=== PATIENT | female | born 1960 | race Caucasian/White ===

== ENCOUNTER 2016-10-10 15:54 | Inpatient (IN) | payer OTHER ==
[~2016-10-10] VITALS: Ht 162.6 cm; Wt 49.1 kg
[~2016-10-10 15:54] MED LIST: ALPR1TAB2 PO; HYDR-429 PO; LEVE500T6 PO; LEVE750T4 PO; MIRT45TA3 PO; NORT25CA5 PO
[2016-10-10] MEDS ORDERED: MAG HYDROX/AL HYDROX/SIMETH 30 ML UDC ONE (16:16)
[2016-10-10] MEDS ORDERED: LIDOCAINE VISCOUS 2% UD 15 ML UDC ONE (16:17)
[2016-10-10] MEDS ORDERED: ACETAMINOPHEN 325 MG TABLET ONE (16:17)
[2016-10-10] MEDS ORDERED: ACETAMINOPHEN 325 MG TABLET PO ONE (16:30)
[2016-10-10] MEDS ORDERED: MAG HYDROX/AL HYDROX/SIMETH 30 ML UDC PO ONE (16:30)
[2016-10-10] MEDS ORDERED: LIDOCAINE VISCOUS 2% UD 15 ML UDC MM ONE (16:30)
[2016-10-10] MEDS ORDERED: ONDANSETRON HCL/PF 4 MG/2 ML VIAL ONE (16:44)
[2016-10-10 16:45] LABS: BASOPHILS # (AUTO) 0.1 /CMM (0.0-0.2); BASOPHILS % (AUTO) 1.3 % (0.0-2.0); DIFF TOTAL % 100 %; EOSINOPHILS % (AUTO) 0.4 % (0.0-6.0); HEMATOCRIT 45 % (33-45); HEMOGLOBIN 15.3 g/dL (11.5-14.8); LYMPHOCYTES # (AUTO) 2.4 /CMM (0.8-4.8); LYMPHOCYTES % (AUTO) 35.5 % (20.0-44.0); MEAN CORPUSCULAR HEMOGLOBIN 31 PG (26.0-33.0); MEAN CORPUSCULAR HGB CONC 34 g/dl (31.0-36.0); MEAN CORPUSCULAR VOLUME 90 fL (82-100); MONOCYTES # (AUTO) 0.3 /CMM (0.1-1.30); MONOCYTES % (AUTO) 4.3 % (2.0-12.0); NEUTROPHILS # (AUTO) 3.9 /CMM (1.8-8.9); NEUTROPHILS % (AUTO) 58.5 % (43.0-81.0); PLATELET COUNT (AUTO) 278 /CMM (150-450); WHITE BLOOD COUNT (AUTO) 6.7 K/uL (4.3-11.0)
[2016-10-10 16:52] LABS: ANION GAP 15 (5-14); CALCIUM, SERUM 9.7 mg/dL (8.5-10.1); CARBON DIOXIDE 27 mmol/L (21-32); CHLORIDE 99 mmol/L (98-107); CREATININE 0.9 mg/dL (0.6-1.3); GFR 65 mL/min (>60); GLUCOSE 104 mg/dL (74-106); POTASSIUM 4.1 mmol/L (3.5-5.1); SODIUM SERUM 136 mmol/L (136-145); UREA NITROGEN, BLOOD 9 mg/dL (7-18)
[2016-10-10] MEDS ORDERED: ONDANSETRON HCL/PF - ER 4 MG/2 ML VIAL IV ONE (17:00)
[2016-10-10 17:04] LABS: ALANINE AMINOTRANSFERASE 21 U/L (12-78); ALBUMIN 4.4 g/dL (3.4-5.0); ASPARTATE AMINOTRANSFERASE 15 U/L (15-37); BILIRUBIN,DIRECT 0.1 mg/dL (0.0-0.2); BILIRUBIN,TOTAL 0.5 mg/dL (0.2-1.0); INDIRECT BILIRUBIN 0.4 mg/dL (0.0-1.1); TOTAL PROTEIN, SERUM 8.8 g/dL (6.4-8.2)
[2016-10-10 17:05] LABS: ACETAMINOPHEN 0 ug/ml (10-30)
[2016-10-10 17:08] LABS: TROPONIN I 0.075 ng/mL (0.00-0.056)
[2016-10-10 17:41] LABS: THYROID STIMULATING HORMONE 0.512 uIU/mL (0.358-3.74)
[2016-10-10] MEDS ORDERED: MORPHINE SULFATE INJ 2 MG/ML DISP.SYRIN ONE (18:54)
[2016-10-10] MEDS ORDERED: MORPHINE SULFATE INJ 2 MG/ML DISP.SYRIN IV ONE (19:00)
[2016-10-10 19:11] LABS: KETONES,URINE NEGATIVE (NEGATIVE); LEUKOCYTE ESTERASE ,URINE NEGATIVE (NEGATIVE)
[2016-10-10 19:23] LABS: PHENCYCLIDINE SCREEN,URINE NEGATIVE (NEGATIVE)
[2016-10-10 19:30] LABS: ADD UA MICROSCOPIC YES
[2016-10-10 19:31] LABS: CANNABINOID, URINE POSITIVE (NEGATIVE)
[2016-10-10 19:32] LABS: ADD URINE CULTURE NO
[2016-10-10] MEDS ORDERED: LEVETIRACETAM (250 MG) 250 MG TABLET PO ONE ×2 (20:30→22:29)
[2016-10-10] MEDS ORDERED: LORAZEPAM 1 MG TABLET ONE (21:08)
[2016-10-10] MEDS ORDERED: ACETAMINOPHEN 325 MG TABLET PO PRN (21:30)
[2016-10-10] MEDS ORDERED: HYDROCODONE/APAP 5/325MG 1 EACH TABLET PO PRN (21:30)
[2016-10-10] MEDS ORDERED: Z GUARD REMEDY 2 OZ OINT TP PRN (21:30)
[2016-10-10] MEDS ORDERED: MAG HYDROX/AL HYDROX/SIMETH 30 ML UDC PO PRN (21:30)
[2016-10-10] MEDS ORDERED: ALPRAZOLAM 1 MG TABLET PO ONE (21:30)
[2016-10-10] MEDS ORDERED: MAGNESIUM HYDROXIDE 30 ML UDC PO PRN (21:30)
[2016-10-10] MEDS ORDERED: ENOXAPARIN SODIUM 40 MG/0.4 ML DISP.SYRIN SQ SCH (21:30)
[2016-10-10] MEDS ORDERED: MIRTAZAPINE 45 MG TABLET ONE (22:30)
[2016-10-10 22:40] VITALS: BP 142/75
[2016-10-10] MEDS: MIRTAZAPINE SOLUTAB 45 MG/UDTABLET TAB.RAPDIS PO SCH (23:34)
[2016-10-11] VITALS (7 sets, daily range): BP systolic 107–131; BP diastolic 64–83
[2016-10-11] MEDS ORDERED: ZOLPIDEM TARTRATE 5 MG TABLET ONE (00:33)
[2016-10-11] MEDS: ZOLPIDEM TARTRATE 5 MG TABLET PO PRN ×2 (00:39→22:22)
[2016-10-11] MEDS: HYDROCODONE/APAP 10/325MG 1 EA TABLET PO SCH ×2 (06:00)
[2016-10-11 06:24] LABS: BASOPHILS % (AUTO) 0.4 % (0.0-2.0); DIFF TOTAL % 100 %; EOSINOPHILS # (AUTO) 0.1 /CMM (0.0-0.7); EOSINOPHILS % (AUTO) 1.3 % (0.0-6.0); HEMATOCRIT 41 % (33-45); HEMOGLOBIN 13.6 g/dL (11.5-14.8); LYMPHOCYTES % (AUTO) 32.3 % (20.0-44.0); MEAN CORPUSCULAR HEMOGLOBIN 30 PG (26.0-33.0); MEAN CORPUSCULAR HGB CONC 33 g/dl (31.0-36.0); MEAN CORPUSCULAR VOLUME 92 fL (82-100); MONOCYTES # (AUTO) 0.4 /CMM (0.1-1.30); MONOCYTES % (AUTO) 6.6 % (2.0-12.0); NEUTROPHILS # (AUTO) 3.7 /CMM (1.8-8.9); NEUTROPHILS % (AUTO) 59.4 % (43.0-81.0); PLATELET COUNT (AUTO) 244 /CMM (150-450); RED BLOOD CELL COUNT(AUTO) 4.49 MIL/uL (4.0-5.2); WHITE BLOOD COUNT (AUTO) 6.3 K/uL (4.3-11.0)
[2016-10-11 07:16] LABS: CALCIUM, SERUM 8.6 mg/dL (8.5-10.1); CREATININE 0.8 mg/dL (0.6-1.3); PHOSPHORUS 3.9 mg/dL (2.5-4.9)
[2016-10-11] MEDS: NORTRIPTYLINE HCL 25 MG CAPSULE PO SCH ×3 (10:14→16:50)
[2016-10-11] MEDS: PANTOPRAZOLE 40 MG TABLET.DR PO SCH (10:14)
[2016-10-11] MEDS: ALPRAZOLAM 1 MG TABLET PO SCH ×2 (10:52→21:12)
[2016-10-11] MEDS ORDERED: ASPIRIN 325 MG TABLET PO SCH (11:00)
[2016-10-11] MEDS ORDERED: ATORVASTATIN 40 MG TABLET PO SCH (11:00)
[2016-10-11] MEDS: LEVETIRACETAM (250 MG) 250 MG TABLET PO SCH ×2 (11:48→16:50)
[2016-10-11] MEDS: METOPROLOL TARTRATE 25 MG TABLET PO SCH ×2 (11:48→21:13)
[2016-10-11] MEDS: ENOXAPARIN SODIUM 60 MG/0.6 ML DISP.SYRIN SQ SCH ×2 (11:51→22:19)
[2016-10-11] MEDS: MORPHINE SULFATE INJ 2 MG/ML DISP.SYRIN IV PRN ×3 (11:52→22:22)
[2016-10-11] MEDS: ONDANSETRON HCL/PF 4 MG/2 ML VIAL IVP PRN (16:55)
[2016-10-11] MEDS ORDERED: ENOXAPARIN SODIUM 40 MG/0.4 ML DISP.SYRIN SQ SCH (21:00)
[2016-10-11] MEDS: ATORVASTATIN 40 MG TABLET PO SCH (21:12)
[2016-10-11] MEDS: MIRTAZAPINE SOLUTAB 45 MG/UDTABLET TAB.RAPDIS PO SCH (21:14)
[2016-10-12] VITALS (9 sets, daily range): BP systolic 101–128; BP diastolic 52–78
[2016-10-12] MEDS: MORPHINE SULFATE INJ 2 MG/ML DISP.SYRIN IV PRN ×4 (06:33→21:04)
[2016-10-12] MEDS: METOPROLOL TARTRATE 25 MG TABLET PO SCH ×2 (09:00→22:18)
[2016-10-12] MEDS: ALPRAZOLAM 1 MG TABLET PO SCH ×2 (10:10→22:18)
[2016-10-12] MEDS: ASPIRIN 81 MG TAB.CHEW PO SCH (10:10)
[2016-10-12] MEDS: NORTRIPTYLINE HCL 25 MG CAPSULE PO SCH ×3 (10:10→16:28)
[2016-10-12] MEDS: PANTOPRAZOLE 40 MG TABLET.DR PO SCH (10:11)
[2016-10-12] MEDS: LEVETIRACETAM (250 MG) 250 MG TABLET PO SCH ×2 (10:11→16:28)
[2016-10-12] MEDS: ENOXAPARIN SODIUM 60 MG/0.6 ML DISP.SYRIN SQ SCH ×2 (12:21→22:55)
[2016-10-12] MEDS: ATORVASTATIN 40 MG TABLET PO SCH (22:18)
[2016-10-12] MEDS: MIRTAZAPINE SOLUTAB 45 MG/UDTABLET TAB.RAPDIS PO SCH (22:18)
[2016-10-12] MEDS: ZOLPIDEM TARTRATE 5 MG TABLET PO PRN (22:53)
[2016-10-13] VITALS: BP 119/70
[2016-10-13] MEDS: MORPHINE SULFATE INJ 2 MG/ML DISP.SYRIN IV PRN ×2 (01:56→08:31)
[2016-10-13 07:52] LABS: BASOPHILS % (AUTO) 0.8 % (0.0-2.0); DIFF TOTAL % 100 %; EOSINOPHILS # (AUTO) 0.1 /CMM (0.0-0.7); EOSINOPHILS % (AUTO) 1.6 % (0.0-6.0); HEMATOCRIT 40 % (33-45); HEMOGLOBIN 13.3 g/dL (11.5-14.8); LYMPHOCYTES # (AUTO) 2.6 /CMM (0.8-4.8); LYMPHOCYTES % (AUTO) 44.8 % (20.0-44.0); MEAN CORPUSCULAR HEMOGLOBIN 30 PG (26.0-33.0); MEAN CORPUSCULAR HGB CONC 33 g/dl (31.0-36.0); MEAN CORPUSCULAR VOLUME 91 fL (82-100); MONOCYTES # (AUTO) 0.5 /CMM (0.1-1.30); MONOCYTES % (AUTO) 8.8 % (2.0-12.0); NEUTROPHILS # (AUTO) 2.6 /CMM (1.8-8.9); PLATELET COUNT (AUTO) 238 /CMM (150-450); WHITE BLOOD COUNT (AUTO) 5.8 K/uL (4.3-11.0)
[2016-10-13 08:00] VITALS: BP 110/60
[2016-10-13 08:02] LABS: CALCIUM, SERUM 8.4 mg/dL (8.5-10.1); CREATININE 0.9 mg/dL (0.6-1.3); POTASSIUM 4.4 mmol/L (3.5-5.1)
[2016-10-13 08:15] LABS: PROTHROMBIN TIME 10.8 SECS (9.5-12.7)
[2016-10-13] MEDS: PANTOPRAZOLE 40 MG TABLET.DR PO SCH (08:31)
[2016-10-13] MEDS: ALPRAZOLAM 1 MG TABLET PO SCH ×2 (08:31→22:16)
[2016-10-13] MEDS: LEVETIRACETAM (250 MG) 250 MG TABLET PO SCH ×2 (08:32→16:03)
[2016-10-13] MEDS: METOPROLOL TARTRATE 25 MG TABLET PO SCH ×2 (08:32→22:17)
[2016-10-13] MEDS: ASPIRIN 81 MG TAB.CHEW PO SCH (08:32)
[2016-10-13] MEDS: NORTRIPTYLINE HCL 25 MG CAPSULE PO SCH ×3 (08:32→16:03)
[2016-10-13] MEDS: ONDANSETRON HCL/PF 4 MG/2 ML VIAL IVP PRN (08:40)
[2016-10-13 12:00] VITALS: BP 108/65
[2016-10-13] MEDS ORDERED: ATOR40TA PO (13:52)
[2016-10-13] MEDS ORDERED: ASPI81TA2 PO (13:52)
[2016-10-13] MEDS ORDERED: METO25TA20 PO (13:52)
[2016-10-13 22:00] VITALS: BP 140/78
[2016-10-13] MEDS: ATORVASTATIN 40 MG TABLET PO SCH (22:16)
[2016-10-13] MEDS: MIRTAZAPINE SOLUTAB 45 MG/UDTABLET TAB.RAPDIS PO SCH (22:17)
[2016-10-13] MEDS: ZOLPIDEM TARTRATE 5 MG TABLET PO PRN (22:18)
[2016-10-13 23:00] VITALS: BP 140/78
[2016-10-14] VITALS: BP 110/65
[2016-10-14 04:00] VITALS: BP 115/60
[2016-10-14 04:45] VITALS: BP 115/60
[2016-10-14 06:58] VITALS: BP 118/72
[2016-10-14] MEDS: PANTOPRAZOLE 40 MG TABLET.DR PO SCH (07:30)
[2016-10-14 08:00] VITALS: BP 121/49
[2016-10-14] MEDS: ALPRAZOLAM 1 MG TABLET PO SCH (09:08)
[2016-10-14] MEDS: NORTRIPTYLINE HCL 25 MG CAPSULE PO SCH (09:08)
[2016-10-14 09:09] VITALS: BP 121/49
[2016-10-14] MEDS: METOPROLOL TARTRATE 25 MG TABLET PO SCH (09:09)
[2016-10-14] MEDS: LEVETIRACETAM (250 MG) 250 MG TABLET PO SCH (09:09)
[2016-10-14] MEDS: ASPIRIN 81 MG TAB.CHEW PO SCH (09:09)
[2016-10-14] MEDS: ONDANSETRON HCL/PF 4 MG/2 ML VIAL IVP PRN (11:52)
[2016-10-14] MEDS: MORPHINE SULFATE INJ 2 MG/ML DISP.SYRIN IV PRN (11:57)
== END 2016-10-14 15:30 | disposition home or self-care (01) | DRG 282 ==
LOC: ER 15:55 → TELE 20:37 → MED 10-14 13:17
PROVIDERS: ADMIT Internal Medicine; ATTEND Internal Medicine
DX: I21.4 Non-ST elevation (NSTEMI) myocardial infarction (principal); G40.909 Epilepsy, unspecified, not intractable, without status epilepticus; F32.9 Major depressive disorder, single episode, unspecified; Z66 Do not resuscitate; F17.210 Nicotine dependence, cigarettes, uncomplicated; Z90.49 Acquired absence of other specified parts of digestive tract
CPT/HCPCS: 36415; 70450-TC; 71010-TC; 80048-TC; 80061-TC; 80076-TC; 81000-TC; 83735-TC; 84100-TC; 84443-TC; 84484-TC; 85025-TC; 85610-TC; 87081-TC; 93307-TC; A4606; G0434; G6038-TC; G6039-TC; G6040-TC; J1650; J2270; J2405; Z7610